=== PATIENT | female | born 1950 | race Caucasian/White ===

== ENCOUNTER → 2023-09-20 15:37 | Outpatient (REF) | payer OTHER, SELFPAY ==
[2023-09-20 17:14] LABS: Blood Urea Nitrogen 61 mg/dl (7-17); Calcium 8.4 mg/dl (8.4-10.2); Carbon Dioxide 29 mmol/L (22-30); Chloride 97 mmol/L (98-107); Glomerular Filtration Rate 21.8; Glucose 213 mg/dl (70-99); Potassium 4.1 mmol/L (3.5-5.1); Sodium 136 mmol/L (135-145)
== END ==
LOC: OLABP 15:37
PROVIDERS: ATTENDING PHYSICIAN Family Medicine
DX: I89.0 Lymphedema, not elsewhere classified (principal)
CPT/HCPCS: 80048